=== PATIENT | female | born 1975 | race Caucasian/White ===

== ENCOUNTER 2016-12-16 13:03 | Emergency (ER) | payer BC, OTHER ==
[2016-12-16] MEDS ORDERED: KETOROLAC TROMETHAMINE 60 MG/2 ML VIAL IM ONE ×2 (13:45→14:19)
--- NOTE | 2016-12-16 13:50 | ERNOTE ---
Abdominal HPI - Narrative Date of Service: 12/16/16 - General Chief Complaint: Constipation Time Seen by Provider: 12/16/16 13:26 Source: patient Exam Limitations: no limitations - Immun/Allergies/Home Medications Immunizatons: IMMUNIZATION HX Immunizations Up to Date Yes History of Influenza Vaccine Yes Hx Pneumococcal Vaccination Yes Allergies/Adverse Reactions: Allergies No Known Allergies Allergy (Unverified 12/16/16 13:17) Home Medications: HOME MEDICATIONS ALPRAZolam [Xanax] 0.25 mg PO DAILY PRN 12/16/16 [Last Taken Unknown] Buprenorphine [Butrans] 1 each TD 10XD 12/16/16 [Last Taken Unknown] Docusate Sodium [Colace] 100 mg PO DAILY #30 cap 12/16/16 [Last Taken Unknown] HYDROcodone/ACETAMINOPHEN [Hydrocodon-Acetaminophen 5-325] 1 each PO PRN [Last Taken Unknown] Hydrocortisone [Anusol-Hc] 30 gm TP BID #1 crm.pe.redd 12/16/16 [Last Taken Unknown] Isomethepten/Caf/Acetaminophen [Prodrin Caplet] 1 each PO PRN 12/16/16 [Last Taken Unknown] Levothyroxine Sodium [Synthroid] 25 mcg PO DAILY 12/16/16 [Last Taken Unknown] Sertraline HCl [Zoloft] 150 mg PO DAILY 12/16/16 [Last Taken Unknown] - History of Present Illness Narrative: Pt. comes in with c/o L lower back pain and rectal bleeding after she digitally disimpact her rectum this morning when she was constipated. Pt. states that her stool was not hard but it just would not come out. Pt. states that she has had multiple abdominal and connective tissue illnesses and surgeries and states that she has had hemorrhoids in the past.Pt. denies any alleviating factors, aggravating factors, SOB, CP, abd pain, NVD, or fevers. Review of Systems - Review of Systems Constitutional: Present: no symptoms reported. Absent: recent illness, fever, chills, weakness, fatigue, malaise EYE: Present: no symptoms reported ENT: Present: no symptoms reported Respiratory: Present: no symptoms reported. Absent: shortness of breath, cough , wheezing Cardiology: Present: no symptoms reported. Absent: chest pain, palpitations, edema Gastrointestinal/Abdominal: Present: no symptoms reported. Absent: nausea, vomiting, diarrhea, abdominal pain Genitourinary: Present: other - rectal bleeding Musculoskeletal: Present: back pain. Absent: neck pain, joint pain Skin: Present: no symptoms reported. Absent: rash, change in hair/nails Neurological: Present: no symptoms reported. Absent: headache, dizziness/light- headedness, numbness, tingling - Patient's Past Medical History Patient History - Medical: No pertinent hx Patient History - Cancer: No Hx of Cancer Patient History - Surgical Procedures: Cholecystectomy Patient History - Other: None - Social History Psych History: Hx of Anxiety Smoking Status: Never smoker Alcohol Use: rarely Drug Use: none - Immunizations Immunizations Up to Date: Yes Hx Pneumococcal Vaccination: Yes History of Influenza Vaccine: Yes Physical Exam - Physical Exam General Appearance: Present: wd/wn, alert, no apparent distress Eye Exam: Normal inspection: bilateral, PERRL: bilateral, EOMI: bilateral Ears, Nose, Throat: Present: normal ENT inspection, normal pharynx Neck: Present: normal inspection, nontender. Absent: lymphadenopathy (R), lymphadenopathy (L) Respiratory: Present: no respiratory distress, normal breath sounds, no accessory muscle use, chest nontender, lungs clear Cardiovascular/Chest: Present: regular rate, rhythm, no murmur, normal peripheral pulses Gastrointestinal/Abdominal: Present: normal bowel sounds, nontender, nondistended, soft, no organomegaly Rectal Exam: Present: normal rectal tone, hemorrhoids - deflated internal anterior hemorrhoids Back Exam: Present: normal inspection, normal range of motion, no CVA tenderness , no vertebral tenderness Extremity Exam: Present: normal inspection, non-tender, normal range of motion, no edema Neurological Exam: Present: alert, oriented, normal mood/affect, no motor/ sensory deficits Skin Exam: Present: normal color, warm/dry. Absent: pallor, skin rash ED Progress - Date and Time Seen: Date and Time: 12/16/16 14:27 Given pt's hx and exam feel that pt. likely decompressed a hemorrhoid this morning before arrival and does not have any further bleeding. - Results and Orders Patient's Lab Results:: I have reviewed the patient's lab results. - Vital Signs Patient's Vital Signs:: I have reviewed the patient's vital signs. Vital Signs: Vital Signs 12/16/16 13:11 Temperature 37.6 C H Pulse Rate 105 H Respiratory 14 Rate Blood Pressure 161/103 O2 Sat by Pulse 99 Oximetry - X-Ray X-Ray #1 X-Ray: abdomen Interpretation: Reviewed by me X-ray Comments: no free air non specific bowel gas pattern. - Progress/Reassessment Chief Complaint: Constipation Progress:: Improved Departure - Departure Clinical Impression: Hemorrhoids Qualifiers: Hemorrhoid type: residual hemorrhoidal skin tags Qualified Code(s): K64.4 - Residual hemorrhoidal skin tags Disposition: Home self-care Condition: Good Instructions: Hemorrhoids, [id number] Additional Instructions: Please follow up with primary provider in 2-3 days. Please use anusol after each bowel movement and twice a day. Please use colace daily. Referrals: Charlotte Handley MD [Primary Care Provider] - Prescriptions: Docusate Sodium [Colace] 100 mg PO DAILY #30 cap Hydrocortisone [Anusol-Hc] 30 gm TP BID #1 crm.pe.redd
[2016-12-16 14:23] LABS: Urine Bilirubin Negative (NEGATIVE); Urine Blood Negative /ul (NEGATIVE); Urine Ketone Negative (NEGATIVE); Urine Nitrite Negative (NEGATIVE); Urine Protein Negative (NEGATIVE); Urine Urobilinogen Normal (NORMAL); Urine pH 5.5 pH (5.0-7.0)
[2016-12-16 14:35] LABS: Urine Appearance Clear; Urine Bacteria TRACE; Urine Color Yellow; Urine RBC None Seen /hpf (0-5); Urine WBC TRACE /hpf (0-5)
[2016-12-16 16:07] VITALS: BP 126/83
== END 2016-12-16 15:31 | disposition home or self-care (01) ==
LOC: ER 13:03
DX: K64.4 Residual hemorrhoidal skin tags (principal)